=== PATIENT | male | born 1955 | race Caucasian/White ===

== ENCOUNTER → 2016-06-28 | Outpatient (CLI) | payer BC ==
[2012-03-11 21:07] VITALS: BP 137/83
[~2016-06-28] MED LIST: MECLIZINE HCL25 M1 PO; NO HOME MEDICATIONS
== END ==
LOC: RAD 09:00
DX: R10.32 Left lower quadrant pain (principal); K76.0 Fatty (change of) liver, not elsewhere classified
CPT/HCPCS: Q9967

== ENCOUNTER → 2017-09-10 | Outpatient (CLI) | payer BC ==
[~2017-09-10] VITALS: Ht 188 cm; Wt 93.2 kg
[~2017-09-10] MED LIST changes: +KLONOPIN 0.5MG0.5 MG PO; +PRILOSEC 20MG20 MG PO
--- NOTE | 2017-09-10 14:15 | NUR ---
PT ESCORTED BACK TO [facility] TO REVIEW EKG WITH ORDERING PROVIDER AT THIS TIME, PT IN STABLE CONDITION
[2017-09-10 14:28] VITALS: BP 128/81
== END ==
LOC: AMSURD 13:59
DX: M79.601 Pain in right arm (principal); M79.602 Pain in left arm

== ENCOUNTER 2021-05-30 14:51 | Emergency (ER) | payer MEDICARE, BC ==
[~2021-05-30] VITALS: Wt 93.2 kg
[2021-05-30 15:35] LABS: URINE APPEARANCE HAZY; URINE BILIRUBIN NEGATIVE (NEGATIVE); URINE BLOOD NEGATIVE (NEGATIVE); URINE COLOR DK YELLOW; URINE GLUCOSE NEGATIVE (NEGATIVE); URINE KETONE NEGATIVE (NEGATIVE); URINE LEUKOCYTE ESTERASE NEGATIVE (NEGATIVE); URINE NITRATE NEGATIVE (NEGATIVE); URINE PROTEIN(semi-quant) TRACE (NEGATIVE); URINE UROBILINOGEN NORMAL (NORMAL); URINE WBC 0-1 /hpf (0-3)
[2021-05-30 15:36] LABS: URINE MUCUS PRESENT (NOT PRESENT)
[2021-05-30 17:31] VITALS: BP 117/76
== END 2021-05-30 17:31 | disposition short-term general hospital (02) ==
LOC: ED 14:51
PROVIDERS: Family Medicine
DX: S22.41XA Multiple fractures of ribs, right side, initial encounter for closed fracture (principal); J93.9 Pneumothorax, unspecified; V80.010A Animal-rider injured by fall from or being thrown from horse in noncollision accident, initial encounter
CPT/HCPCS: J3010